=== PATIENT | female | born 1975 ===

== ENCOUNTER 2017-10-13 08:19 | Outpatient (CLI) | payer OTHER | END 2017-10-13 08:30 | disposition home or self-care (01) | LOC: RX STUDY 08:19 | DX: R13.13 Dysphagia, pharyngeal phase (principal) ==

== ENCOUNTER 2017-10-14 09:51 | Outpatient (CLI) | payer OTHER | END 2017-10-14 10:47 | disposition home or self-care (01) | LOC: SONOGRAMA 09:51 | DX: E04.2 Nontoxic multinodular goiter (principal) ==

== ENCOUNTER 2021-09-08 09:12 | Outpatient (CLI) | payer OTHER | END 2021-09-08 09:17 | disposition home or self-care (01) | LOC: SONOGRAMA 09:12 | PROVIDERS: ATTEND Pathology Anatomic Pathology & Clinical Pathology | DX: E04.9 Nontoxic goiter, unspecified (principal) ==